=== PATIENT | male | born 1955 | race Caucasian/White ===

== ENCOUNTER → 2017-05-18 | Day surgery (SDC) | payer MEDICARE, OTHER ==
[~2017-05-18] MED LIST: ASPIRIN81 M2 PO; GABAPENTIN400 M2 PO; GABAPENTIN800 MG PO; HYDROCHLOROTHIA25 MG PO; HYDROCODON-ACE1 EAC5 PO; IBUPROFEN200 M1 PO; JANUMET XR 1001 EACH PO; JANUMET XR 50-1 EACH PO; JANUVIA PO; LISINOPRIL-HCTZ1 T16 PO; METFORMIN HCL500 M1 PO; NAPROSYN-EC500 M1 PO; NAPROSYN500 MG PO; NEURONTIN PO; PRINIVIL40 MG PO; SIMVASTATIN40 MG PO; SYMBICORT 16010.2 GM INH; TRAVATAN5 ML OU; ZYRTEC10 M1 PO
--- NOTE | ~2017-05-18 | OR ---
Unit #: [id number] #: [id number] Patient: JALEN CROWDER [id number] [address] [address] [id number] MR#: [id number] NAME: JALEN CROWDER ROOM: Date of Procedure: 05/18/2017 Admission Date: 05/18/2017 Surgeon: Jae Medley M.D. : 1955 Attending Physician: Jae Medley M.D. Primary Care Physician: Jalen Cheung M.D. OPERATIVE REPORT PROCEDURES PERFORMED Colonoscopy to ascending colon with biopsies and snare polypectomy. INDICATIONS FOR PROCEDURE A 61-year-old gentleman with family history of colon cancer in mother, personal history of polyps, undergoing colonoscopy for surveillance. MEDICATIONS Monitored anesthesia. POSTOPERATIVE FINDINGS 1. Cecum could not be intubated. 2. Several ulcers, cratered clean based seen in ascending colon, biopsies taken most likely ischemic. 3. Transverse colon shows a polyp about 5 mm, snared and sent for histopathology. 4. Rest of the colon exam was normal. PLAN Follow up on the pathology report. Repeat colonoscopy in 3 years. DESCRIPTION OF PROCEDURE The patient was explained of the procedure, risks, and benefits along with risks and benefits of anesthesia. He was brought to the endoscopy room. Propofol anesthesia was given. Rectal exam was done, which was normal. Colonoscope was lubricated, passed up the rectum, advanced under direct vision all the way to the cecum. Cecum was identified up to ascending colon. Cecum could not be intubated. Ulcers seen in the ascending colon were biopsied. Small polyp seen in the transverse colon was snared and sent for histopathology. I retroflexed in the rectum, small hemorrhoids seen. The scope was gently pulled out. He tolerated it well. Dictated by... Elvira Martin/garrett TD: 05/18/2017 16:50 JOB #: [id number] CC: Jalen Cheung M.D. Unit #: [id number] #: [id number] Patient: JALEN CROWDER OPERATIVE REPORT Page 1 of 1 X Jae Medley MD PROCEDURE OPERATIVE NOTE
== END | disposition home or self-care (01) ==
LOC: COPS 12:07
DX: Z12.11 Encounter for screening for malignant neoplasm of colon (principal); D12.3 Benign neoplasm of transverse colon; K51.90 Ulcerative colitis, unspecified, without complications; K64.9 Unspecified hemorrhoids; I10 Essential (primary) hypertension; E11.9 Type 2 diabetes mellitus without complications; J44.9 Chronic obstructive pulmonary disease, unspecified; E78.5 Hyperlipidemia, unspecified; E66.9 Obesity, unspecified; F17.210 Nicotine dependence, cigarettes, uncomplicated; Z68.41 Body mass index [BMI] 40.0-44.9, adult; Z88.0 Allergy status to penicillin; Z88.2 Allergy status to sulfonamides; Z91.048 Other nonmedicinal substance allergy status; Z79.84 Long term (current) use of oral hypoglycemic drugs; Z79.899 Other long term (current) drug therapy
CPT/HCPCS: 82947; 88305; 88341; 88342; J2250